=== PATIENT | male | born 1960 | race Asian ===

== ENCOUNTER 2021-02-23 02:33 | Emergency (ER) | payer OTHER ==
[~2021-02-23] VITALS: Ht 190.5 cm; Wt 54.4 kg
[2021-02-23 02:33] VITALS: BP 116/74
[2021-02-23 03:14] LABS: PLATELET COUNT 195 K/uL (142-355)
[2021-02-23 03:18] LABS: POTASSIUM 3.4 mmol/L (3.6-5.2)
[2021-02-23] MEDS ORDERED: ASPIRIN PO (05:00)
[2021-02-23] MEDS ORDERED: ASPIRIN DR PO ×2 (05:02→05:39)
[2021-02-23] MEDS ORDERED: HALOPERIDOL2 MG PO ×2 (05:10→05:40)
[2021-02-23] MEDS ORDERED: ANTI-FUNGAL12 TOP ×2 (05:10→05:40)
[2021-02-23] MEDS ORDERED: LORA0.5T17 PO ×3 (05:12→05:42)
[2021-02-23] MEDS ORDERED: COZAAR100 MG PO (05:15)
[2021-02-23] MEDS ORDERED: SEROQUEL25 MG PO ×2 (05:21→05:52)
[2021-02-23] MEDS ORDERED: ONDA4TAB3 PO (05:22)
[2021-02-23] MEDS ORDERED: PRAVASTATIN10 MG PO (05:26)
[2021-02-23] MEDS ORDERED: PRAVACHOL20 MG PO (05:27)
[2021-02-23] MEDS ORDERED: NUEDEXTA PO (05:31)
[2021-02-23] MEDS ORDERED: TYLENOL325 MG PO ×2 (05:33→05:37)
[2021-03-13] MEDS ORDERED: ESCI10TA PO (09:31)
[2021-03-13] MEDS ORDERED: OLAN2.5T2 PO (09:31)
[2021-03-13] MEDS ORDERED: CHOL100034 PO (09:31)
[2021-03-13] MEDS ORDERED: MEMA5TAB PO (09:31)
[2021-03-13] MEDS ORDERED: DIVA250T PO (09:31)
[2021-03-13] MEDS ORDERED: NUEDEXTA 20-10MG CAP PO (09:32)
[2021-03-13] MEDS ORDERED: BENZ1TAB43 PO (09:32)
== END 2021-02-23 04:20 | disposition other institution (70) ==
LOC: ED 02:33
PROVIDERS: Family Medicine
DX: R46.89 Other symptoms and signs involving appearance and behavior (principal); I10 Essential (primary) hypertension; F17.210 Nicotine dependence, cigarettes, uncomplicated; Z11.52 Encounter for screening for COVID-19; Z04.6 Encounter for general psychiatric examination, requested by authority
CPT/HCPCS: 36415; 80053; 85027; 87635; 93005; 99283; U0003